=== PATIENT | female | born 2000 | race Caucasian/White ===

== ENCOUNTER 2019-07-06 09:18 | Emergency (ER) | payer SELFPAY ==
[~2019-07-06] VITALS: Ht 160 cm; Wt 47.6 kg
[2019-07-06 09:41] VITALS: Ht 160 cm; Wt 47.6 kg
[2019-07-06 11:02] LABS: BASOPHIL % 0.8 % (0-2); PLATELET COUNT 218 x10^3mcL (130-400); RED CELL DISTRIBUTION WIDTH 11.5 % (11.5-14.5)
[2019-07-06 11:11] LABS: CALCIUM 9.9 mg/dL (8.5-10.1); CARBON DIOXIDE 24.1 mmol/L (21-32); CHLORIDE SERUM 105 mmol/L (98-107); CREATININE SERUM 0.7 mg/dL (0.6-1.0); GFR1 > 60 mL/min; GLUCOSE SERUM 111 mg/dL (74-106); SODIUM SERUM 140 mmol/L (136-145)
[2019-07-06 11:15] LABS: ALBUMIN 4.3 g/dL (3.4-5.0); ALKALINE PHOSPHATASE 65 U/L (46-116); ALT/SGPT 26 U/L (14-59); AST/SGOT 20 U/L (15-37); BILIRUBIN TOTAL 0.78 mg/dL (0.20-1.00); LIPASE 52 IU/L (73-393)
[2019-07-06 12:06] VITALS: BP 116/77
== END 2019-07-06 12:06 | disposition home or self-care (01) ==
LOC: ED 09:18
PROVIDERS: Emergency Medicine
DX: R11.10 Vomiting, unspecified (principal); R07.89 Other chest pain; F12.90 Cannabis use, unspecified, uncomplicated
CPT/HCPCS: J2405; J3490; J7030